=== PATIENT | female | born 1990 | race Caucasian/White ===

== ENCOUNTER 2019-02-19 09:42 | Emergency (ER) | payer SELFPAY ==
--- NOTE | 2019-02-19 11:38 | ULT ---
FExam: Pelvic ultrasound HISTORY: Cramping and vaginal bleeding, x2 days. patient. Comparison none TECHNIQUE: Transabdominal and endovaginal imaging of the pelvis is performed. FINDINGS: Uterus is identified, without myometrial masses. Uterus appears to be retroverted. Uterus measures 6. 1 x 10.1 x 7.0 cm. Within the endometrium, there is an irregular-appearing gestational sac, yolk sac and pole. heart tones at a rate of 45 bpm. No evidence of subchorionic hemorrhage Small amount of fluid in the cul-de-sac Neither ovary is appreciated IMPRESSION: pole with decreased heart tones. Irregular appearing gestational sac. Finding s may represent an spontaneous in progress, giving history of cramping and bleeding. Follow- up ultrasound and serial beta-hCG studies are recommended.
[2019-02-19 11:44] LABS: #Basophils 0.1 thou/uL (0.0-0.2); #Eosinphils 0.1 thou/uL (0.0-0.7); #Lymphocytes 1.7 thou/uL (1.20-3.40); #Monocytes 0.5 thou/uL (0.11-0.59); #Neutrophils 4.3 thou/uL (1.40-6.50); %Basophils 0.9 % (0.0-1.0); %Eosinophils 1.2 % (0.0-10.0); %Lymphocytes 25.9 % (21.0-51.0); %Monocytes 6.9 % (0.0-10.0); %Neutrophils 65.1 % (42.0-75.0); Mean Corpuscular HGB CONC 33.8 g/dL (32.0-36.0); Mean Corpuscular Hemoglobin 30.2 pg (27.0-31.0); Mean Corpuscular Volume 89.5 fL (78.0-98.0); Mean Platelet Volume 7.6 fL (7.4-10.4); Platelet Count 244 thou/uL (130-400); RBC Distribution Width 11.8 % (11.5-14.5); Red Blood Cell (RBC) Count 4.97 mill/uL (4.20-5.40); White Blood Cell (WBC) Count 6.6 thou/uL (4.8-10.8)
[2019-02-19 12:10] LABS: Bilirubin Negative (Negative); Blood, Urine Small (Negative); Clarity CLEAR (Clear); Glucose, Urine (Dipstick) Negative (Negative); Leukocyte Negative (Negative); Nitrite Negative (Negative); Protein, Urine (Dipstick) Negative (Neg-Trace); Specific Gravity, Urine 1.005 (1.002-1.036); pH, Urine 6.5 (5.0-9.0)
[2019-02-19 12:11] LABS: Bacteria/HPF None Seen HPF (None Seen); Hyaline Casts/LPF 0-3 HYALINE CAST LPF (0-3 Hyaline); Pathc Cast-AUWi Flag 0.81 (0-2.49); RBC/HPF 0-3 HPF (0-3); Squamous Epithelial None Seen HPF (0-3); WBC/HPF None Seen HPF (0-3)
[2019-02-19 12:16] LABS: Pregnancy Test - Urine (BHCG) POSITIVE (Negative)
[2019-02-19 12:17] LABS: Pregu Control Background? CLEAR/WHITE (CLR/WHITE); Pregu Control Bar Appear? YES (CONTROL BAR); Specific Gravity 1.005 (1.002-1.036)
== END 2019-02-19 12:32 | disposition home or self-care (01) ==
LOC: ERS 09:42
DX: O20.0 Threatened abortion (principal); J45.909 Unspecified asthma, uncomplicated; Z3A.01 Less than 8 weeks gestation of pregnancy
CPT/HCPCS: 36415; 76856; 81003; 81015; 81025; 84702; 85025

== ENCOUNTER 2019-06-12 18:02 | Emergency (ER) | payer OTHER ==
[2019-06-12 18:46] LABS: #Lymphocytes 2.3 thou/uL (1.20-3.40); #Monocytes 0.6 thou/uL (0.11-0.59); #Neutrophils 4.5 thou/uL (1.40-6.50); %Basophils 0.6 % (0.0-1.0); %Eosinophils 0.5 % (0.0-10.0); %Lymphocytes 30.6 % (21.0-51.0); %Neutrophils 60.3 % (42.0-75.0); Hemoglobin 14.4 g/dL (12.0-16.0); Mean Corpuscular HGB CONC 35.6 g/dL (32.0-36.0); Mean Corpuscular Hemoglobin 31.1 pg (27.0-31.0); Mean Corpuscular Volume 87.3 fL (78.0-98.0); Mean Platelet Volume 7.2 fL (7.4-10.4); Platelet Count 262 thou/uL (130-400); RBC Distribution Width 12.1 % (11.5-14.5); Red Blood Cell (RBC) Count 4.64 mill/uL (4.20-5.40); White Blood Cell (WBC) Count 7.4 thou/uL (4.8-10.8)
[2019-06-12 19:40] LABS: Bilirubin Negative (Negative); Blood, Urine Trace (Negative); Clarity Clear (Clear); Glucose, Urine (Dipstick) Normal (Negative); Leukocyte Negative Leu/uL (Negative); Nitrite Negative (Negative); Protein, Urine (Dipstick) 30 mg/dL (Neg-Trace); Urobilinogen 3 mg/dL (Less than 2); WBC/HPF 0-3 HPF (0-3)
[2019-06-12 19:50] LABS: Bacteria/HPF Rare-Few HPF (None Seen)
--- NOTE | 2019-06-12 22:22 | ULT ---
PELVIC ULTRASOUND: 06/12/19 Transabdominal ultrasound of pelvis performed. INDICATIONS: Pelvic pain. FINDINGS: There is a viable intrauterine gestation identified. Gestational sac is identified and appears unre markable. Yolk sac is identified. A pole is identified. [place]-rump length indicates a 7 week, 4 day gestation. heart rate recorded at 168 beats per minute. There is a small hypoechoic focus seen posterior to the gestational sac in the subchorionic region co nsistent with a small subchorionic hemorrhage measuring approximately 1.0 cm. Both ovaries are identified and appear unremarkable. Color Doppler with spectral analysis demonstrate s blood flow to both ovaries. No free fluid. IMPRESSION: 1. A viable intrauterine . [place]-rump length indicates a 7 week, 4 day gestation. 2. There is evidence of a small subchorionic hemorrhage. Follow-up recommended. POS: KRISTIE
== END 2019-06-12 22:13 | disposition home or self-care (01) ==
LOC: ERS 18:02
DX: O99.89 Other specified diseases and conditions complicating pregnancy, childbirth and the puerperium (principal); R10.30 Lower abdominal pain, unspecified; O99.511 Diseases of the respiratory system complicating pregnancy, first trimester; J45.909 Unspecified asthma, uncomplicated; Z3A.08 8 weeks gestation of pregnancy
CPT/HCPCS: 36415; 76856; 81003; 81015; 84702; 85025; 93976

== ENCOUNTER 2020-01-13 05:14 | Inpatient (IN) | payer OTHER ==
--- NOTE | 2020-01-13 05:51 | PDOC.LDHP ---
Labor and Delivery H&P Chief complaint: scheduled section HPI: repeat cs at term Current gestational age (weeks): 39 Due date: 01/20/20 Dating criteria: last menstrual period, first trimester ultrasound Grav: 4 Para: 2 (CS x 2) Current complications: gestational hypertension ( attempted to move up delivery but space not available on L&D schedule) Abnormal US findings: No Current medications: pre- vitamins Previous surgical history: low tranverse CS Social history: none - Physical Exam Vital signs reviewed and normal: yes (mild gest htn) General: NAD, resting Heart: RRR Lungs: nonlabored breathing Abdomen: gravid Extremeties: trace edema FHT: category 1 - OB Labs Blood type: O RH: positive Antibody Screen: negative HIV: negative RPR: negative HEPSAg: negative GBS: negative Urine drug screen: negative Rubella: immune - Assessment L&D Assessment: scheduled repeat section - Plan Plan: admit to L&D, to OR for section (DVT and Abx prophalaxis), anesthesia consult for pain management
[2020-01-13 06:08] VITALS: BMI 47.4
[2020-01-13] MEDS ORDERED: Ondansetron PF 4 MG/2 ML Vial IVP PRN ×3 (06:26→09:56)
[2020-01-13] MEDS ORDERED: Promethazine HCl 25 MG/ML VIAL IM PRN ×3 (06:26→09:56)
[2020-01-13] MEDS ORDERED: Lactated Ringer's 1,000 ML IV SCH ×2 (06:26)
[2020-01-13] MEDS ORDERED: hydrALAZINE 20 MG/ML VIAL SLOW IVP PRN ×2 (06:26→09:56)
[2020-01-13] MEDS ORDERED: Bicitra 30 ML UDCUP PO SCH (06:30)
[2020-01-13] MEDS ORDERED: CEFAZOLIN 2 GM in Premix Bag 1 BAG IVPB SCH (06:30)
[2020-01-13 06:48] LABS: Hemoglobin 11.8 g/dL (12.0-16.0); Mean Corpuscular HGB CONC 34.9 g/dL (32.0-36.0); Mean Corpuscular Volume 85.8 fL (78.0-98.0); Mean Platelet Volume 8.1 fL (7.4-10.4); Platelet Count 200 thou/uL (130-400); RBC Distribution Width 12.3 % (11.5-14.5); Red Blood Cell (RBC) Count 3.92 mill/uL (4.20-5.40); White Blood Cell (WBC) Count 5.7 thou/uL (4.8-10.8)
[2020-01-13] MEDS ORDERED: EPHEDRINE 25 MG/5 ML SYRINGE ONE (07:06)
[2020-01-13] MEDS ORDERED: PHENYLEPHRINE-NS 100 MCG/ML 10 ML SYRINGE ONE (07:06)
[2020-01-13] MEDS ORDERED: Oxytocin 10 UNITS/ML VIAL ONE (07:06)
[2020-01-13] MEDS ORDERED: MORPHINE 5 MG/10 ML PF VIAL ONE (07:06)
[2020-01-13] MEDS ORDERED: Ondansetron PF 4 MG/2 ML Vial ONE (07:06)
[2020-01-13 07:28] LABS: HBSAg Index 0.26 S/CO (0-0.99); Hep B Surf Ag Non-Reactive S/CO (NonReactive); Syphilis Antibody Nonreactive (Nonreactive); Syphilis Antibody Index 0.04 S/CO (<1.00 Non-Reactive)
[2020-01-13] MEDS ORDERED: Naloxone HCl 0.4 mg/ml Vial IV PRN (07:54)
[2020-01-13] MEDS ORDERED: Naloxone HCl 0.4 mg/ml Vial IVP PRN ×2 (07:54)
[2020-01-13] MEDS ORDERED: diphenhydrAMINE 50 MG/ML VIAL IVP PRN (07:54)
[2020-01-13] MEDS ORDERED: Ketorolac Tromethamine 30 MG/ML VIAL IVP PRN (07:54)
[2020-01-13] MEDS ORDERED: Promethazine HCl 25 MG SUPP PR PRN (07:54)
[2020-01-13] MEDS ORDERED: Communication Order-Pharmacy FS SCH (08:00)
[2020-01-13] MEDS ORDERED: Ketorolac Tromethamine 30 MG/ML VIAL ONE (08:07)
[2020-01-13] MEDS ORDERED: NS / Oxytocin 40 units/1000ml 1,000 ML ONE (09:07)
[2020-01-13] MEDS ORDERED: Meperidine HCl/PF 25 MG/ML VIAL IM PRN (09:56)
[2020-01-13] MEDS ORDERED: Zolpidem Tartrate 5 MG TAB PO PRN (09:56)
[2020-01-13] MEDS ORDERED: NS / Oxytocin 40 units/1000ml 1,000 ML IV SCH (09:56)
[2020-01-13] MEDS ORDERED: Adacel (T-DAP) 0.5 ML SYRINGE IM ONE (09:56)
[2020-01-13] MEDS ORDERED: HYDROcodone/Acetaminophen 5/325 mg Tablet PO PRN (09:56)
[2020-01-13] MEDS ORDERED: Lanolin Ointment 7 GM TUBE TOP PRN (09:56)
[2020-01-13] MEDS ORDERED: Acetaminophen 325 MG TAB PO PRN (09:56)
[2020-01-13] MEDS ORDERED: diphenhydrAMINE 25 MG CAP PO PRN (09:56)
[2020-01-13] MEDS ORDERED: Bisacodyl 10 MG SUPP PR PRN (09:56)
[2020-01-13] MEDS ORDERED: Prenatal Vitamin 1 TAB PO SCH (10:15)
[2020-01-13] MEDS ORDERED: Docusate Calcium (SURFAK) 240 MG CAP PO SCH (10:15)
[2020-01-13] MEDS: Lactated Ringer's 1,000 ML IV SCH ×2 (13:17→16:35)
[2020-01-13] MEDS: Ibuprofen 800 MG TAB PO SCH (14:19)
--- NOTE | 2020-01-13 14:38 | OP ---
DATE OF PROCEDURE: 01/13/2020 PREOPERATIVE DIAGNOSIS: Thirty-nine weeks gestation, prior section x2 for repeat. POSTOPERATIVE DIAGNOSIS: Thirty-nine weeks gestation, prior section x2 for repeat. PROCEDURE PERFORMED: Repeat low-transverse section without extension. [employer]STRUCTOR: Amber Whittaker PA-C ANESTHESIA: Subarachnoid block, Julius Garza MD MEDICATIONS: 2 g Ancef pre-incision. DVT PROPHYLAXIS: SCDs. DRAINS: Mei to gravity with clear urine. OPERATIVE FINDINGS: 1. Vigorous female infant, 7 and 9 Apgars, cephalic presentation, clear fluid, weight pending to nursery. 2. Normal-appearing uterus, tubes, and ovaries bilaterally. 3. Hemostasis, clear urine. COUNTS: Correct at the end of the procedure. DISPOSITION: Recovery room in good condition. QBL was pending at the time of dictation, however, estimated blood loss was 750 mL. DESCRIPTION OF PROCEDURE: After obtaining appropriate informed consent, the patient was taken to the operating where subarachnoid block achieved without difficulty. The patient was prepped and draped in the usual manner. Previous Pfannenstiel incision identified, incised sharply and carried down to the fascia, was incised sharply superolaterally with curved Che scissors, rectus dissected off sharply, superiorly and inferiorly, divided in the midline. Peritoneum entered bluntly taking care to avoid trauma to the underlying viscera. Prior hysterotomy identified. Bladder flap dissected off lower uterine segment. Hysterotomy incised. Clear fluid encountered. Cephalic presentation extended superiorly and laterally with finger fractionization. The infant's head elevated to hysterotomy. Rest of the infant delivered. Cord clamped, cut, handed off to the team in attendance. Usual cord blood sample was obtained. Placenta removed manually. Hysterotomy was noted to be without extension. Left inside the abdominal cavity, was closed in a 2-layer manner using a running locking #1 Monocryl suture. Good hemostasis was noted. Gutters were irrigated out bilaterally. Re-inspection of the hysterotomy revealed it to be dry. Rectus was inspected and noted to be dry. Fascia reapproximated using 0 PDS suture x2. Subcutaneous tissue irrigated, rendered hemostatic with Bovie cautery, reapproximated using a 2-0 plain gut. Skin reapproximated using 4-0 Monocryl and Dermabond. The patient was taken to recovery room in good condition. Job ID: [id number]
[2020-01-13] MEDS: Simethicone Chewable 80 MG TAB PO PRN (22:06)
[2020-01-13] MEDS: Docusate Calcium (SURFAK) 240 MG CAP PO SCH (22:07)
[2020-01-14] MEDS: HYDROcodone/Acetaminophen 5/325 mg Tablet PO PRN ×3 (00:32→08:55)
[2020-01-14] MEDS: Simethicone Chewable 80 MG TAB PO PRN ×2 (00:32→08:55)
[2020-01-14] MEDS: Ibuprofen 800 MG TAB PO SCH ×4 (00:34→21:41)
[2020-01-14] MEDS: Lactated Ringer's 1,000 ML IV SCH ×3 (01:09→17:15)
[2020-01-14 06:03] LABS: Hemoglobin 10.8 g/dL (12.0-16.0); Mean Corpuscular HGB CONC 33.1 g/dL (32.0-36.0); Mean Corpuscular Hemoglobin 28.7 pg (27.0-31.0); Mean Corpuscular Volume 86.7 fL (78.0-98.0); Mean Platelet Volume 8.3 fL (7.4-10.4); Platelet Count 196 thou/uL (130-400); RBC Distribution Width 12.4 % (11.5-14.5); Red Blood Cell (RBC) Count 3.76 mill/uL (4.20-5.40); White Blood Cell (WBC) Count 8.6 thou/uL (4.8-10.8)
--- NOTE | 2020-01-14 07:59 | PDOC.PP ---
Post Progress Note Post Day #: 1 PO intake tolerated: yes Flatus: yes Ambulation: yes Vital Signs (12 hours) Temp Pulse Resp BP 01/14/20 04:40 98.7 F 97 16 118/58 L 01/13/20 23:25 99.1 F 101 H 18 123/62 Weight Weight 285 lb Result Diagrams: 01/14/20 05:40 Additional Labs: Post Labs Blood Type O POSITIVE 01/13/20 06:38 Hep Bs Antigen Non-Reactive S/CO (NonReactive) 01/13/20 06:38 - Assessment/Plan post op day 1 from repeat c/s. Vitals are stable. HCT 32%. Routine care.
[2020-01-14] MEDS: Prenatal Vitamin 1 TAB PO SCH (08:50)
[2020-01-14] MEDS: Docusate Calcium (SURFAK) 240 MG CAP PO SCH ×2 (08:50→21:42)
[2020-01-14] MEDS ORDERED: Sodium Chloride 0.9% 10 ML ONE (13:28)
[2020-01-14] MEDS ORDERED: Ondansetron ODT 4 MG TAB PO PRN (14:42)
[2020-01-15] MEDS: Lactated Ringer's 1,000 ML IV SCH ×2 (05:15→10:51)
[2020-01-15] MEDS: Ibuprofen 800 MG TAB PO SCH ×2 (05:20→14:36)
[2020-01-15 08:20] VITALS: BP 131/78; TEMP 98.2
--- NOTE | 2020-01-15 08:22 | PDOC.PP ---
Post Progress Note Post Day #: 2 PO intake tolerated: yes Flatus: yes Ambulation: yes Vital Signs (12 hours) Temp Pulse Resp BP Pulse Ox 01/15/20 08:20 98.2 F 81 20 131/78 98 01/15/20 05:15 98.1 F 84 18 119/78 01/14/20 23:55 98.0 F 79 18 124/60 01/14/20 20:25 100 Weight Weight 285 lb Result Diagrams: 01/14/20 05:40 Additional Labs: Post Labs Blood Type O POSITIVE 01/13/20 06:38 Hep Bs Antigen Non-Reactive S/CO (NonReactive) 01/13/20 06:38 - Assessment/Plan Doing well. D/c home.. F/u 6 weeks.
[2020-01-15] MEDS: Prenatal Vitamin 1 TAB PO SCH (08:36)
[2020-01-15] MEDS: Docusate Calcium (SURFAK) 240 MG CAP PO SCH (08:36)
== END 2020-01-15 15:00 | disposition home or self-care (01) | DRG 788 ==
LOC: L&D 05:14 → 3SW 11:11
PROVIDERS: ADMIT Obstetrics & Gynecology; ATTEND Obstetrics & Gynecology
PROC: 10D00Z1 Extraction of Products of Conception, Low, Open Approach (ICD-10-PCS; principal; 2020-01-13)
DX: O34.211 Maternal care for low transverse scar from previous cesarean delivery (principal); Z3A.39 39 weeks gestation of pregnancy; Z37.0 Single live birth; O13.4 Gestational [pregnancy-induced] hypertension without significant proteinuria, complicating childbirth
CPT/HCPCS: 36415; 51702; 85027; 86780; 86850; 86900; 86901; 87340; J0690; J1885; J2274; J2405; J2590; Q0162